=== PATIENT | male | born 1970 | race Hispanic/Latino ===

== ENCOUNTER 2021-06-03 16:48 | Inpatient (IN) | payer OTHER ==
[2021-06-03] MEDS ORDERED: HYDROCODONE/APAP 5MG-325MG TAB PO PRN (20:15)
[2021-06-03] MEDS ORDERED: ACETAMINOPHEN 325 MG TAB PO PRN (20:15)
[2021-06-03] MEDS ORDERED: ONDANSETRON HCL INJ 2MG/ML 2ML 2 MG/ML VIAL IV PRN (20:15)
[2021-06-03 20:50] VITALS: BP 113/78
[2021-06-03 21:00] VITALS: BP 113/78
[2021-06-03] MEDS: Vancomycin IV 1 GM in SODIUM CHLORIDE 0.9% 250ML 250 ML IV SCH (22:00)
[2021-06-03] MEDS: CEFEPIME 1 GM in SODIUM CHLORIDE 0.9% 50ML 50 ML IV SCH (23:00)
[2021-06-04] VITALS (8 sets, daily range): BP systolic 115–124; BP diastolic 77–91
[2021-06-04] MEDS ORDERED: LIDOCAINE 4% PATCH TP PRN (01:00)
[2021-06-04] MEDS ORDERED: DIPHENHYDRAMINE HCL 25 MG CAP PO PRN (01:00)
[2021-06-04] MEDS ORDERED: HYDRALAZINE HCL 20 MG/ML VIAL IV PRN (01:00)
[2021-06-04] MEDS ORDERED: POTASSIUM CHLORIDE 20 MEQ TAB CR PO PRN (01:00)
[2021-06-04] MEDS ORDERED: MELATONIN 5 MG TABLET PO PRN (01:00)
[2021-06-04] MEDS ORDERED: DOCUSATE SODIUM 100 MG CAP PO PRN (01:00)
[2021-06-04] MEDS ORDERED: DEXTROSE 50% SYRINGE 50 ML IV PRN ×2 (01:00→01:15)
[2021-06-04] MEDS ORDERED: BENZONATATE 100 MG CAP PO PRN (01:00)
[2021-06-04] MEDS ORDERED: SIMETHICONE 80 MG CHEW PO PRN (01:00)
[2021-06-04] MEDS ORDERED: CHLORASEPTIC SPRAY 177 ML BTL MM PRN (01:00)
[2021-06-04 05:36] LABS: BASOPHILS % 0.4 % (0.0-1.0); EOSINOPHILS # (AUTO) 0.3 (0.0-0.4); EOSINOPHILS % 4.3 % (0.0-6.0); HEMOGLOBIN 16.5 g/dL (14.0-18.0); LYMPHOCYTES # (AUTO) 1.9 (1.0-3.2); LYMPHOCYTES % 27.8 % (18.0-39.1); MEAN CORPUSCULAR HEMOGLOBIN 32.8 pg (28-32); MEAN CORPUSCULAR HGB CONC 35.1 g/dL (31-35); MEAN CORPUSCULAR VOLUME 93.4 fL (81-99); MONOCYTES # (AUTO) 1.3 (0.2-0.8); MONOCYTES % 18.8 % (4.4-11.3); NEUTROPHILS # (AUTO) 3.4 (2.1-6.9); NEUTROPHILS % 48.4 % (38.7-80.0); PLATELET COUNT 199 x10e3/uL (140-360); RED BLOOD COUNT 5.03 x10e6/uL (4.3-5.7); RED CELL DISTRIBUTION WIDTH 12.1 % (11.7-14.4)
[2021-06-04] MEDS: CEFEPIME 1 GM in SODIUM CHLORIDE 0.9% 50ML 50 ML IV SCH ×3 (06:15→22:34)
[2021-06-04 06:28] LABS: ANION GAP 9.9 mmol/L (8-16); CREATININE, SERUM 0.83 mg/dL (0.72-1.25); POTASSIUM 3.9 mmol/L (3.5-5.1)
[2021-06-04] MEDS: INSULIN LISPRO 100 UNIT/1 ML 3ML VIAL SQ SCH ×4 (07:30→21:00)
[2021-06-04] MEDS: PANTOPRAZOLE SOD 40 MG TABEC PO SCH (07:30)
[2021-06-04] MEDS: Vancomycin IV 1 GM in SODIUM CHLORIDE 0.9% 250ML 250 ML IV SCH ×2 (09:28→20:30)
[2021-06-04] MEDS: KETOROLAC TROMETHAMINE 30 MG/ML VIAL IV SCH ×2 (12:31→22:00)
[2021-06-04] MEDS: ENOXAPARIN SOD INJ 40 MG/0.4 ML SYR SC SCH (17:23)
[2021-06-05] VITALS (8 sets, daily range): BP systolic 104–135; BP diastolic 72–95
[2021-06-05] MEDS: CEFEPIME 1 GM in SODIUM CHLORIDE 0.9% 50ML 50 ML IV SCH ×3 (06:40→23:27)
[2021-06-05] MEDS: KETOROLAC TROMETHAMINE 30 MG/ML VIAL IV SCH (06:40)
[2021-06-05] MEDS: INSULIN LISPRO 100 UNIT/1 ML 3ML VIAL SQ SCH ×4 (07:30→20:05)
[2021-06-05] MEDS: PANTOPRAZOLE SOD 40 MG TABEC PO SCH (08:20)
[2021-06-05] MEDS: Vancomycin IV 1 GM in SODIUM CHLORIDE 0.9% 250ML 250 ML IV SCH ×2 (08:55→20:04)
[2021-06-05] MEDS ORDERED: ONDANSETRON HCL 4 MG ORAL DISINTEGRATING TAB PO PRN (12:45)
[2021-06-05] MEDS: ENOXAPARIN SOD INJ 40 MG/0.4 ML SYR SC SCH (17:14)
[2021-06-05] MEDS ORDERED: ARIPIPRAZOLE 5 MG TABLET PO SCH (21:00)
[2021-06-05] MEDS ORDERED: CEFEPIME HCL 1 GM VIAL ONE (21:34)
[2021-06-05] MEDS ORDERED: SODIUM CHLORIDE 0.9% 250ML 250 ML ONE (21:34)
[2021-06-06 01:49] VITALS: BP 120/78
[2021-06-06] MEDS: CEFEPIME 1 GM in SODIUM CHLORIDE 0.9% 50ML 50 ML IV SCH (05:20)
[2021-06-06 06:19] VITALS: BP 113/77
[2021-06-06 06:26] LABS: BASOPHILS % 0.6 % (0.0-1.0); EOSINOPHILS # (AUTO) 0.4 (0.0-0.4); EOSINOPHILS % 7.9 % (0.0-6.0); HEMATOCRIT 46.4 % (38.2-49.6); HEMOGLOBIN 16.5 g/dL (14.0-18.0); LYMPHOCYTES % 39.3 % (18.0-39.1); MEAN CORPUSCULAR HEMOGLOBIN 33.1 pg (28-32); MEAN CORPUSCULAR HGB CONC 35.6 g/dL (31-35); MEAN CORPUSCULAR VOLUME 93.2 fL (81-99); MONOCYTES # (AUTO) 0.6 (0.2-0.8); MONOCYTES % 12.2 % (4.4-11.3); NEUTROPHILS % 39.6 % (38.7-80.0); PLATELET COUNT 225 x10e3/uL (140-360); RED BLOOD COUNT 4.98 x10e6/uL (4.3-5.7); RED CELL DISTRIBUTION WIDTH 12.1 % (11.7-14.4)
[2021-06-06 07:13] LABS: ANION GAP 7.7 mmol/L (8-16); CALCIUM 8.4 mg/dL (8.4-10.2); CREATININE, SERUM 0.74 mg/dL (0.72-1.25); POTASSIUM 3.7 mmol/L (3.5-5.1)
[2021-06-06] MEDS: INSULIN LISPRO 100 UNIT/1 ML 3ML VIAL SQ SCH ×2 (07:30→11:30)
[2021-06-06] MEDS: PANTOPRAZOLE SOD 40 MG TABEC PO SCH (07:30)
[2021-06-06 07:56] VITALS: BP 117/71
[2021-06-06] MEDS: Vancomycin IV 1 GM in SODIUM CHLORIDE 0.9% 250ML 250 ML IV SCH (08:30)
== END 2021-06-06 13:40 | disposition home or self-care (01) | DRG 638 ==
LOC: IMCU 17:34
PROVIDERS: ADMIT Internal Medicine; ATTEND Internal Medicine
DX: E11.628 Type 2 diabetes mellitus with other skin complications (principal); L03.211 Cellulitis of face; H60.11 Cellulitis of right external ear; E66.01 Morbid (severe) obesity due to excess calories; I10 Essential (primary) hypertension; K11.21 Acute sialoadenitis; Z86.16 Personal history of COVID-19; F20.9 Schizophrenia, unspecified
CPT/HCPCS: 36415; 80048; 80202; 82948; 83036; 85025; J0692; J1650; J1885; J3370; J7050

== ENCOUNTER → 2024-04-25 | Day surgery (SDC) | payer OTHER ==
[~2024-04-25] MED LIST: LACTATED RINGER'S 1,000 ML ONE; LIDOCAINE HCL 2% LOCAL INJ 5 ML SDV VIAL INJ ONE; METOCLOPRAMIDE HCL 10 MG/2ML VIAL ONE; PROPOFOL IV EMULSION 10 MG/ML 20 ML VIAL ONE
[2024-04-25 13:05] VITALS: BP 102/62; PULSE 62; RESP 16; O2SAT 100
== END | disposition home or self-care (01) ==
LOC: OR 12:30
PROVIDERS: ATTEND Internal Medicine Gastroenterology
DX: Z12.11 Encounter for screening for malignant neoplasm of colon (principal); K63.5 Polyp of colon; K57.30 Diverticulosis of large intestine without perforation or abscess without bleeding; K64.8 Other hemorrhoids; Z71.3 Dietary counseling and surveillance; F17.210 Nicotine dependence, cigarettes, uncomplicated; Z71.6 Tobacco abuse counseling; Z01.810 Encounter for preprocedural cardiovascular examination; Z68.36 Body mass index [BMI] 36.0-36.9, adult
CPT/HCPCS: 45385; 93005; J2003; J2704; J2765; J7121